=== PATIENT | male | born 1945 | race Caucasian/White ===

== ENCOUNTER 2016-09-30 11:18 | Inpatient (IN) | payer MEDICARE, BC ==
[~2016-09-30] VITALS: Ht 165.1 cm; Wt 86.6 kg
--- NOTE | 2016-10-05 05:13 | MH ---
cc: SETH PURVIS DATE OF ADMISSION: 10/05/2016 ADMISSION DIAGNOSIS Osteoarthritis of the left knee. HISTORY This is a 71-year-old male with significant left knee pain. Investigative studies show evidence of significant arthritis of the left knee. Despite conservative care he is painful and symptomatic. He presents for surgical treatment. PAST MEDICAL HISTORY, SOCIAL HISTORY, FAMILY HISTORY, REVIEW OF SYSTEMS See attached notes. PHYSICAL EXAMINATION GENERAL: A 71-year-old male in moderate distress with his left knee. HEENT: Normocephalic, atraumatic. Pupils equal, round, reactive to light and accommodation. Extraocular motions intact. NECK: Supple. CHEST: Clear. HEART: Regular rate and rhythm. ABDOMEN: Soft, nontender with normoactive bowel sounds. MUSCULOSKELETAL EXAMINATION: Left knee - Pain with range of motion. A mild flexion contracture seen with flexion to 110 degrees. Neurologic and vascular examination within normal limits. IMPRESSION Osteoarthritis of the left knee. PLAN Left total knee replacement arthroplasty. CONSENT There are risks with surgery including infection, bleeding, loss of motion, continued pain, need for further surgery, neurologic and vascular injury. The patient understands these issues and wishes to press on with surgery as outlined above. MD JS Canas/MARIE /10:45 PM /5:10 AM
[2016-10-05] MEDS ORDERED: EPINEPHrine HCL (1:1000) 1 MG/ML VIAL ONE (07:10)
[2016-10-05] MEDS ORDERED: SODIUM CHLORIDE 0.9% 20 ML VIAL ONE (07:10)
[2016-10-05] MEDS ORDERED: ceFAZolin INJ 1,000 MG VIAL ONE (07:10)
[2016-10-05] MEDS ORDERED: GENTAMICIN SULFATE 80 MG/2 ML VIAL ONE (07:10)
[2016-10-05] MEDS ORDERED: KETOROLAC TROMETHAMINE 30 MG/ML (IVP) VIAL ONE (07:10)
[2016-10-05 07:38] VITALS: BP 139/79; PULSE 89; RESP 18; TEMP 98.1; O2SAT 97
[2016-10-05] MEDS ORDERED: METF500T PO (07:48)
[2016-10-05] MEDS ORDERED: GLIP10TA67 PO (07:48)
[2016-10-05] MEDS ORDERED: SIMV40TA PO (07:48)
[2016-10-05] MEDS ORDERED: EXENINJ SQ (07:49)
[2016-10-05] MEDS ORDERED: POTA595T PO (07:49)
[2016-10-05] MEDS ORDERED: LEVEMIR SQ (07:49)
[2016-10-05] MEDS ORDERED: MULT1TAB85 PO (07:49)
[2016-10-05] MEDS ORDERED: RAMI10CA PO (07:49)
[2016-10-05] MEDS ORDERED: ALPH600C PO (07:49)
[2016-10-05] MEDS ORDERED: PYRI100T PO (07:49)
[2016-10-05] MEDS ORDERED: FENO160T PO (07:49)
[2016-10-05] MEDS ORDERED: SODIUM CHLOR 0.9% 250 ML INJ 250 ML ONE (07:50)
[2016-10-05] MEDS ORDERED: VANCOMYCIN HCL 1000 MG VIAL ONE (07:50)
[2016-10-05] MEDS ORDERED: FAMOTIDINE 20 MG/2 ML VIAL ONE (08:23)
[2016-10-05] MEDS ORDERED: MIDAZOLAM HCL 2 MG/2 ML VIAL ONE (08:23)
[2016-10-05] MEDS ORDERED: ACETAMINOPHEN 1000 MG/100 ML VIAL IV ONE (08:23)
[2016-10-05] MEDS ORDERED: HYDROmorphone HCL PF 2 MG/ML VIAL ONE (08:24)
[2016-10-05] MEDS ORDERED: fentaNYL CITRATE 250 MCG/5 ML AMP ONE (08:24)
[2016-10-05] MEDS ORDERED: ceFAZolin 2 GM PREMIX 50 ML ONE (08:24)
[2016-10-05] MEDS ORDERED: VANCOMYCIN 1000 MG/NS 250 ML (for <70 kg) IV SCH ×2 (08:45)
[2016-10-05] MEDS ORDERED: TRANEXAMIC ACID IV SCH ×3 (08:45→13:15)
[2016-10-05] MEDS ORDERED: POVIDONE IODINE 7.5% SCRUB 118 ML BOTTLE TOPICAL SCH (08:45)
[2016-10-05] MEDS ORDERED: SODIUM CHLORIDE 0.9% IV SCH ×3 (08:45→13:15)
[2016-10-05] MEDS ORDERED: EXPAREL PERI-ARTICULAR INJECTION (TOTAL VOL. 60 ML) P-ARTICULR SCH ×2 (08:45)
[2016-10-05] MEDS ORDERED: ceFAZolin 2 GM PREMIX 50 ML IV SCH (08:45)
[2016-10-05] MEDS ORDERED: DEXTROSE 50% IN WATER 50 ML VIAL(D50) IV PRN (11:00)
[2016-10-05] MEDS ORDERED: GLUCAGON 1 MG/ML VIAL IM/SQ PRN (11:00)
[2016-10-05] MEDS ORDERED: MISCELLANEOUS NURSING INFORMATION XX PRN (11:00)
[2016-10-05] MEDS ORDERED: MISCELLANEOUS PHARMACY INFORMATION XX ONE (11:00)
[2016-10-05] MEDS: INSULIN NovoLIN REGULAR SUPPLEMENTAL SCALE SQ SCH ×3 (11:00→21:36)
[2016-10-05] MEDS ORDERED: MORPHINE SULFATE 8 MG/ML INJ IM PRN (11:00)
[2016-10-05] MEDS ORDERED: EXENATIDE 2 MG SQ SCH (11:00)
[2016-10-05] MEDS ORDERED: TEMAZEPAM 15 MG CAP PO PRN (11:00)
[2016-10-05] MEDS ORDERED: SODIUM CHLORIDE 0.9% FLUSH 5 ML FLUSH IVF PRN (11:00)
--- NOTE | 2016-10-05 11:01 | PD.OP ---
cc: John Le MD Operative Report Date of Surgery: October 05, 2016 Preoperative Diagnosis: Osteoarthritis left knee Postoperative Diagnosis: Same Procedure: Left total knee replacement arthroplasty Anesthesia: Gen. with abductor canal block Surgeon: John Le Slab Miller Operator(s): MILENA Mccall Operation and Findings: EBL: 100 cc INDICATION: This patient presents with long-standing arthritis of the knee. Attachment record documents conservative measures. The patient now presents for surgical treatment. NOTE: Isis Mccall PA-C was present for the entire surgical procedure as my miller head assistant wet process. In my medical opinion her skill and care was necessary for proper management of this patient. TOURNIQUET TIME: 50 minutes COMPANY: [employer] FEMUR: Size 4, cruciate retaining TIBIA: Size 4, fixed bearing PATELLA: 35 mm POLYETHYLENE INSERT: 9 mm PROCEDURE: This patient was brought the operating room and anesthetized in the supine position. The patient was positioned supine on the table. The tourniquet was placed about the thigh, and the leg was scrubbed with alcohol followed by Hibiclens followed by ChloraPrep and draped sterilely. A timeout was done, and antibiotics were given. After exsanguination the tourniquet was inflated to 250 mmHg. An anterior incision was made and a median parapatellar arthrotomy was performed. The patella was released laterally and subluxed allowing freehand cut of the patella which was then sized. A metal cap was placed over the exposed patellar surface for protection. A fuel pilot engineer hole was placed in the distal femur allowing a 5 valgus cut removing 10 mm from the distal femur. Anterior posterior and chamfer cuts were made. The posterior stabilize osteotomy was made. The attention was directed to the tibia. Retractors were positioned. The external alignment guide was used allowing the lateral tibia to be used as referencing guide and cut utilizing an oscillating saw taking care to avoid any injury to the surrounding soft tissues. This was sized properly. Trial reduction showed that the insert fit nicely. The patient had range of motion extension 0 flexion 120. A medial release was not necessary. The bony surfaces prepared. On the back table 2 packets of methylmethacrylate were mixed. The components were cemented. Excess cement was removed. The tourniquet let down and hemostasis was controlled. The final plastic insert was inserted. Range of motion was the same as previously noted. A drain was brought through a separate stab incision. The arthrotomy was repaired with interrupted #1 Vicryl suture, subcutaneous tissue 2-0 Vicryl suture and skin with metallic katrin A sterile dressing was applied. Sponge counts, needle counts and instrument counts were all correct. The patient tolerated procedure well and was taken to recovery in satisfactory condition. FINDINGS: The patient had severe arthritis especially of the retropatellar and medial compartment. There was significant chondromalacia involving the femoral condyle of the lateral compartment. Erosion of bone in the medial and posterior medial aspect was noted. The final solution had excellent balancing with range of motion and excellent orientation. No complication was appreciated. John Le MD October 05, 2016 11:01
[2016-10-05] MEDS ORDERED: XARE10TA PO (11:03)
[2016-10-05] MEDS ORDERED: OXYC1TAB63 PO (11:03)
[2016-10-05] MEDS ORDERED: Post-op Orders (for Pharmacy) MISC XX ONE (11:16)
[2016-10-05] MEDS: LACTATED RINGER'S 1000 ML INJ 1,000 ML IV SCH ×2 (11:40→21:24)
[2016-10-05] MEDS ORDERED: *morphine SULFATE 8 MG/ML PERIprocedure ONLY ONE (11:45)
[2016-10-05] MEDS ORDERED: PROPOFOL 200 MG/20 ML AMP IV ONE (12:00)
[2016-10-05] MEDS ORDERED: ONDANSETRON HCL 4 MG/2 ML VIAL IV PUSH ONE (12:00)
[2016-10-05] MEDS ORDERED: ePHEDrine/NS 25 MG/5 ML SYR IV ONE (12:00)
[2016-10-05] MEDS ORDERED: DO NOT ADM ANY ANTICOAGULANT DRUGS PRN (12:00)
[2016-10-05] MEDS ORDERED: LACTATED RINGER'S 1000 ML INJ 1,000 ML IV ONE (12:00)
--- NOTE | 2016-10-05 12:18 | RADRPT ---
EXAM DATE/TIME: 10/05/2016 11:30 [facility] COMPARISON: No previous studies available for comparison. INDICATIONS : Post op left knee surgery. MEDICAL HISTORY : None. SURGICAL HISTORY : None. ENCOUNTER: Initial ACUITY: 1 day PAIN SCORE: 6/10 LOCATION: Left knee FINDINGS: Examination of the knee demonstrates arthroplasty in satisfactory position. The alignment is anatomic . CONCLUSION: Post surgical changes as above. Tang Colbert MD on October 05, 2016 at 12:16 Board Certified Radiologist. This report was verified electronically.
[2016-10-05] MEDS ORDERED: BUPIVACAINE LIPOSOME PF 1.3% 20 ML VIAL ONE (12:51)
[2016-10-05 13:40] VITALS: BP 138/70; PULSE 94; RESP 18; TEMP 97.7; O2SAT 96
[2016-10-05] MEDS: oxyCODONE/ACETAMINOPHEN 5 MG/325 MG TAB PO PRN ×3 (13:55→22:40)
--- NOTE | 2016-10-05 15:13 | HHI.FF ---
Face to Face Verification Diagnosis: (1) Left knee pain (2) Osteoarthritis of left knee Physical Therapy Gait training, Safety evaluation, Transfer training, bed to chair Knee: Total knee, Protocol: Left, Full weight bearing Canvas Knee Splint: When in bed & 2 pillows btw thighs Left LE Weight Bearing: WB as tolerated Additional Instructions PT 4 days/wk for 2 weeks. WBAT Left LE, TKA protocol. Walker as needed. CPM bid as tolerated, 0-70 with goal of 100 flexion. Nursing RN Days per Week: 2 x Week(s): 1 Dressing Changes: Do not change dressing Additional Instructions Vitals assessment. Dressing assessment - do not change unless saturated or erythema I have seen patient Jorge Neumann on 10/05/16. My clinical findings support the need for the requested home health care services because: Limited ability to care for self High risk of falls I certify that my clinical findings support that this patient is homebound because: Post-op weakness Unsteady gait/balance Isis Mccall October 05, 2016 15:13
[2016-10-05] MEDS ORDERED: WALKER WHEELS/F1 MIS (15:14)
[2016-10-05] MEDS ORDERED: CPMMACHINE (15:14)
[2016-10-05] MEDS ORDERED: MISC-163 (15:14)
--- NOTE | 2016-10-05 15:15 | HHI.DCPOC ---
Discharge Care Plan Diagnosis: (1) Left knee pain (2) Osteoarthritis of left knee Your Health Problems Are: Incision/Drains Swelling Goals to Promote Your Health * To prevent worsening of your condition and complications * To maintain your health at the optimal level Directions to Meet Your Goals Take your medications as prescribed Follow your dietary instruction Follow activity as directed Keep your appointments as scheduled Take your immunizations and boosters as scheduled If your symptoms worsen call your PCP, if no PCP go to Urgent Care Center or Emergency Room Smoking is Dangerous to Your Health. Avoid second hand smoke Call the 24-hour hour crisis hotline for domestic abuse at Isis Mccall October 05, 2016 15:15
--- NOTE | 2016-10-05 15:16 | HHI.DS ---
Discharge Summary Admission Date October 05, 2016 at 07:02 Discharge Date: October 07, 2016 Admitting Diagnosis see below Diagnosis: (1) Left knee pain Diagnosis: Principal (2) Osteoarthritis of left knee Diagnosis: Principal Procedures Left total knee arthroplasty Brief History This is a 71 year old male patient with a history of left knee pain for several years. He sought out medical treatment when his function began to decline. Imaging studies were performed showing significant arthritis about the left knee. Conservative measures were pursued for a period of time including limited activity, medications and injections. He continued to decline. Surgical treatment was recommended and he elected to move forward. Hospital Course Surgical treatment was performed on the day of admission without complication. He recovered well in PACU and was transferred to the orthopaedic floor. Pain was controlled with IV and oral medications. DVT prophylaxis was initiated pod# 1. He was compliant with physical therapy and all restrictions. After 2 days he was found to be stable and discharged home with home health care. He was instructed to continue therapy, pursue a high fiber diet for 3-5 days and to continue his xarelto for 15 days postop. Pt Condition on Discharge: Stable Discharge Disposition: Disch w/ Home Health Serv Discharge Instructions Diet Instructions: Diabetic Diet, High Fiber Diet Activities You Can Perform: Weight Bearing as Ori Activities to Avoid: Strenuous Activity Additional Activity Instruc.: TKA protocol New Medications: 3-in-1 Bedside Toilet (3-in-1 Bedside Toilet) 1 Mis Mis 1 EA .ROUTE DIRECTED #1 EA CPM-Continuous Passive Motion Machine (CPM-Continuous Passive Motion Machine) 1 Ea Device 1 EA .ROUTE DIRECTED #1 Ref 0 EA Walker with Front Wheels (Walker with Front Wheels) 1 Mis Mis 1 EA .ROUTE DIRECTED #1 Ref 0 EA Oxycodone-Acetaminophen (Oxycodone-Acetaminophen) 5-325 mg Tab 1 TAB PO Q4H PRN PAIN LESS THAN 5 ON SCALE #50 TAB Rivaroxaban (Xarelto) 10 Mg Tab 10 MG PO Q24H Prevent Blood Clot #15 TAB Continued Medications: Alpha Lipoic Acid (Alpha Lipoic Acid) 600 Mg Cap 600 MG PO DIRECTED Nutritional Supplement Ref 0 CAP Exenatide Inj (Bydureon Inj) 2 Mg Vial 2 MG SQ Q7D Blood Sugar Management #4 Ref 0 INJECTION Fenofibrate (Fenofibrate) 160 Mg Tab 160 MG PO DAILY #30 Ref 0 TAB Glipizide ER (Glipizide XL) 10 Mg Quintin 20 MG PO DAILY Take with breakfast or first main meal of the day Blood Sugar Management #30 Ref 0 TAB Insulin Detemir Inj (Levemir Inj) 1,000 unit/ 10 ML Vial 21 UNITS SQ HS Do not mix with any other Insulin. Blood Sugar Management Ref 0 VIAL Metformin (Metformin) 500 Mg Tab 1500 MG PO DAILY With a meal Blood Sugar Management #30 Ref 0 TAB Multiple Vitamins W/ Minerals (Multivitamin Men) 1 Tab Tab 1 TAB PO DAILY Nutritional Supplement Ref 0 TAB Potassium Gluconate (Potassium Gluconate) 595 Mg Tab 1 TAB PO DAILY Pyridoxine (Vitamin B-6) 100 Mg Tab 100 MG PO DAILY Nutritional Supplement #30 Ref 0 TAB Ramipril (Ramipril) 10 Mg Cap 10 MG PO DAILY #30 Ref 0 CAP Simvastatin (Simvastatin) 40 Mg Tab 40 MG PO HS Cholesterol Management #30 Ref 0 TAB Isis Mccall October 05, 2016 15:16
[2016-10-05] MEDS: glipiZIDE 10 MG TAB PO SCH (15:38)
[2016-10-05 16:15] VITALS: BP 129/72; PULSE 90; RESP 16; TEMP 97.9; O2SAT 97
[2016-10-05 21:00] VITALS: BP 126/69; PULSE 89; RESP 17; TEMP 96.5; O2SAT 94
[2016-10-05] MEDS: SODIUM CHLORIDE 0.9% FLUSH 5 ML FLUSH IVF SCH (21:00)
[2016-10-05] MEDS: SENNOSIDES 8.6 MG TAB PO SCH (21:24)
[2016-10-05] MEDS: MAGNESIUM HYDROXIDE SUSP 30 ML CUP PO SCH (21:24)
[2016-10-05] MEDS: PRAVASTATIN SOD 80 MG TAB PO SCH (21:24)
[2016-10-05 23:45] VITALS: BP 122/59; PULSE 87; RESP 17; TEMP 96.3; O2SAT 97
[2016-10-06 04:35] VITALS: BP 111/65; PULSE 82; RESP 16; TEMP 97.1; O2SAT 95
[2016-10-06] MEDS: glipiZIDE 10 MG TAB PO SCH ×2 (06:23→16:32)
[2016-10-06] MEDS: INSULIN NovoLIN REGULAR SUPPLEMENTAL SCALE SQ SCH ×4 (06:26→20:37)
[2016-10-06] MEDS: oxyCODONE/ACETAMINOPHEN 5 MG/325 MG TAB PO PRN ×3 (06:45→19:13)
[2016-10-06 07:37] LABS: HEMATOCRIT 33.5 % (39.0-51.0); REVIEW FLAG FINAL
[2016-10-06 08:00] VITALS: BP 116/56; PULSE 98; RESP 18; TEMP 98.8; O2SAT 95
[2016-10-06] MEDS ORDERED: NON-FORMULARY DRUG (Potassium Gluconate 1 TAB) PO SCH (09:00)
[2016-10-06] MEDS: SODIUM CHLORIDE 0.9% FLUSH 5 ML FLUSH IVF SCH ×2 (09:00→20:36)
[2016-10-06] MEDS: MAGNESIUM HYDROXIDE SUSP 30 ML CUP PO SCH ×2 (09:31→20:36)
[2016-10-06] MEDS: FENOFIBRATE 145 MG TAB PO SCH (09:32)
[2016-10-06] MEDS: RIVAROXABAN 10 MG TAB PO SCH (09:32)
[2016-10-06] MEDS: metFORMIN HCL 500 MG TAB PO SCH (09:33)
[2016-10-06] MEDS: RAMIPRIL 5 MG CAP PO SCH (09:33)
[2016-10-06] MEDS: LACTATED RINGER'S 1000 ML INJ 1,000 ML IV SCH ×2 (11:55→20:39)
[2016-10-06 12:00] VITALS: BP 113/59; PULSE 86; RESP 18; TEMP 98; O2SAT 97
[2016-10-06 16:00] VITALS: BP 139/65; PULSE 81; RESP 18; TEMP 98.5; O2SAT 95
--- NOTE | 2016-10-06 19:23 | PD.ORT.PN ---
Subjective Subjective Remarks Pt was seen and evaluated at lunchtime today. He states he is doing 'ok'. He was very comfortable up until 1-2 hours ago when the pain increased. He has questions about the lower extremity block and the surgery. He denies any radiating leg pain below the knee. No new CP or SOB. Prefers d/c home Objective Vitals Vital Signs Date Time Temp Pulse Resp B/P Pulse Ox O2 Delivery O2 Flow Rate FiO2 10/06/16 16:00 98.5 81 18 139/65 95 10/06/16 12:00 98.0 86 18 113/59 97 10/06/16 08:00 98.8 98 18 116/56 95 10/06/16 04:35 97.1 82 16 111/65 95 10/05/16 23:45 96.3 87 17 122/59 97 10/05/16 21:00 96.5 89 17 126/69 94 I/O 10/05/16 10/05/16 10/05/16 10/06/16 10/06/16 10/06/16 07:00 15:00 23:00 07:00 15:00 23:00 Intake Total 1569 ml 1555 ml 785 ml 260 ml 600 ml Output Total 570 ml 1560 ml 1300 ml 130 ml 1500 ml Balance 999 ml -5 ml -515 ml 130 ml -900 ml Intake Oral 960 ml 600 ml IV Total 469 ml 595 ml 785 ml 260 ml Other 1100 ml Output Urine Total 420 ml 1450 ml 1250 ml 1500 ml Drainage Total 50 ml 110 ml 50 ml 130 ml Estimated Blood Loss 100 ml # Bowel Movements 0 0 Result Diagram: 10/06/16 0644 Procedures Left total knee arthroplasty Objective Remarks Sitting up in bed, at bedside NAD VSS LLE Knee dressing c/d/i, lateral drain in place, mild swelling and warmth, no erythema thigh and calf supple, neg homans +motor at, +sens, +nvi Assessment & Plan Ortho Post Op Day #: 1 Problem List: (1) Left knee pain (2) Osteoarthritis of left knee Assessment and Plan pod#1 s/p L TKA Ortho stable. Doing well. 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 Xarelto 10mg qd. PT - WBAT LLE. TKA protocol. CPM bid as tolerated, 0-70 w goal 100 flexion. D/C left knee drain. Ok to redress drain site. Hold incision dressing changes unless saturated. D/C planning, home w c tomorrow. DME written. F2F written. Isis Mccall October 06, 2016 19:23
[2016-10-06 20:05] VITALS: BP 129/77; PULSE 97; RESP 16; TEMP 99.1; O2SAT 96
[2016-10-06] MEDS: PRAVASTATIN SOD 80 MG TAB PO SCH (20:36)
[2016-10-06] MEDS: SENNOSIDES 8.6 MG TAB PO SCH (20:36)
[2016-10-06 23:30] VITALS: BP 136/74; PULSE 91; RESP 17; TEMP 99; O2SAT 94
[2016-10-07] MEDS: LACTATED RINGER'S 1000 ML INJ 1,000 ML IV SCH (06:42)
[2016-10-07] MEDS: glipiZIDE 10 MG TAB PO SCH (06:49)
[2016-10-07] MEDS: INSULIN NovoLIN REGULAR SUPPLEMENTAL SCALE SQ SCH ×2 (06:49→12:08)
--- NOTE | 2016-10-07 07:54 | PD.ORT.PN ---
Subjective Subjective Remarks No complaints. Pain under control. Ambulating independently Objective Vitals Vital Signs Date Time Temp Pulse Resp B/P Pulse Ox O2 Delivery O2 Flow Rate FiO2 10/07/16 06:41 Room Air 10/06/16 23:30 99.0 91 17 136/74 94 10/06/16 20:05 99.1 97 16 129/77 96 10/06/16 16:00 98.5 81 18 139/65 95 10/06/16 12:00 98.0 86 18 113/59 97 10/06/16 08:00 98.8 98 18 116/56 95 I/O 10/06/16 10/06/16 10/06/16 10/07/16 10/07/16 10/07/16 07:00 15:00 23:00 07:00 15:00 23:00 Intake Total 785 ml 260 ml 1080 ml 480 ml Output Total 1300 ml 130 ml 2600 ml 1350 ml Balance -515 ml 130 ml -1520 ml -870 ml Intake Oral 1080 ml 480 ml IV Total 785 ml 260 ml Output Urine Total 1250 ml 2600 ml 1350 ml Drainage Total 50 ml 130 ml # Bowel Movements 0 0 Result Diagram: 10/06/16 0644 Procedures Left total knee arthroplasty Objective Remarks Sitting up in bed, NAD VSS LLE Knee dressing c/d/i, lateral drain in place, mild swelling and warmth, no erythema thigh and calf supple, neg homans +motor at, +sens, +nvi Assessment & Plan Ortho Post Op Day #: 2 Problem List: (1) Left knee pain (2) Osteoarthritis of left knee Assessment and Plan pod#2 s/p L TKA Ortho stable. Doing well. Xarelto 10mg qd. PT - WBAT LLE. TKA protocol. CPM bid as tolerated, 0-70 w goal 100 flexion. No dressing change Hold incision dressing changes unless saturated. D/C planning, home w [facility] today. DME written. F2F written. John Le MD October 07, 2016 07:54
[2016-10-07 08:00] VITALS: BP 138/75; PULSE 93; RESP 16; TEMP 97.7; O2SAT 98
[2016-10-07] MEDS: RAMIPRIL 5 MG CAP PO SCH (08:22)
[2016-10-07] MEDS: FENOFIBRATE 145 MG TAB PO SCH (08:22)
[2016-10-07] MEDS: MAGNESIUM HYDROXIDE SUSP 30 ML CUP PO SCH (08:22)
[2016-10-07] MEDS: metFORMIN HCL 500 MG TAB PO SCH (08:22)
[2016-10-07] MEDS: RIVAROXABAN 10 MG TAB PO SCH (08:23)
[2016-10-07] MEDS: oxyCODONE/ACETAMINOPHEN 5 MG/325 MG TAB PO PRN ×2 (08:23→12:20)
[2016-10-07] MEDS: SODIUM CHLORIDE 0.9% FLUSH 5 ML FLUSH IVF SCH (08:24)
[2016-10-08] MEDS ORDERED: EXENATIDE 2 MG SQ SCH (20:15)
== END 2016-10-07 12:32 | disposition home or self-care (01) | DRG 470 ==
LOC: HSDI 10-05 07:02 → N06B 10-05 13:23
PROVIDERS: ADMIT Orthopaedic Surgery Orthopaedic Surgery of the Spine; ATTEND Orthopaedic Surgery Orthopaedic Surgery of the Spine
PROC: 0SRD0J9 Replacement of Left Knee Joint with Synthetic Substitute, Cemented, Open Approach (ICD-10-PCS; principal; 2016-10-05 08:47)
DX: M17.12 Unilateral primary osteoarthritis, left knee (principal); G62.9 Polyneuropathy, unspecified; E11.9 Type 2 diabetes mellitus without complications; E78.5 Hyperlipidemia, unspecified; M94.262 Chondromalacia, left knee; K21.9 Gastro-esophageal reflux disease without esophagitis; Z79.01 Long term (current) use of anticoagulants
CPT/HCPCS: 36415; 73560; 82948; 85014; 85018; 86850; 86900; 86901; 86920; 94150; C1776; C9290; J0131; J0171; J0690; J1170; J1580; J1885; J2250; J2270; J2405; J3010; J3370; J7050; J7120; L1830